=== PATIENT | female | born 1935 | race African-American/Black ===

== ENCOUNTER 2016-11-09 23:50 | Emergency (ER) | payer OTHER ==
[~2016-11-09] VITALS: Ht 157.5 cm; Wt 87.2 kg
[~2016-11-09 23:50] MED LIST: ACTOS15 MG PO; AMLODIPINE BESYL5 MG PO; FEOSOL325 MG PO; FLUCONAZOLE100 MG PO; FUROSEMIDE20 MG PO; FUROSEMIDE40 MG PO; GLIPIZIDE ER2.5 MG PO; GLUCOPHAGE500 MG; GLUCOPHAGE500 MG PO; GLUCOTROL XL5 MG PO; HYDROCHLOROTHIA25 MG PO; INDERIDE 40/1 TABLET PO; KLOR-CON 1010 ME1 PO; LASIX20 MG PO; LOSARTAN POTAS100 MG PO; LOSARTAN POTASS50 MG PO; Levaquin PO; Lopressor PO; METFORMIN HCL1000 M1; METFORMIN HCL1000 MG PO; MUCINEX600 MG PO; NORVASC10 MG PO; PERCOCET 5/31 TABLET PO; PREDNISONE10 MG PO; Protonix PO; Proventil,Ventolin H IH; SIMVASTATIN20 MG PO; SINEMET PO; TIMOLOL MAL; TRAMADOL HCL50 MG PO; UNABLEOBTAIN; ZITHROMAX Z-PA250 MG PO
[2016-11-10 00:35] LABS: HEMATOCRIT 30.4 % (36.0-46.0); MCH 28.7 PG (29.0-34.0); MCHC 32.9 G/DL (30.0-36.0); MCV 87.1 FL (83-99); MEAN PLAT.VOLUME 10.8 uM^3 (9.5-12.4); PLATELET COUNT 180 K/uL (156-360); RBC DIS.WIDTH-CV 15.4 % (11.8-14.6); RBC DIS.WIDTH-SD 48.1 % (39-53); RED BLOOD COUNT 3.49 M/uL (3.80-5.20); WHITE BLOOD COUNT 9.4 K/uL (4.1-10.2)
[2016-11-10 00:43] LABS: CHLORIDE 109 mEq/L (99-109); POTASSIUM 3.9 mEq/L (3.7-5.4); SODIUM 139 mEq/L (136-147)
[2016-11-10 00:45] LABS: GLUCOSE 125 mg/dL (70-99)
[2016-11-10 00:46] LABS: ANION GAP 10 MEQ/L (2-14)
[2016-11-10 00:49] LABS: GFR ESTIMATE (CALCULATED) 55 mL/min/; UREA NITROGEN (BUN) 26 mg/dL (9-23)
[2016-11-10] MEDS ORDERED: PERCOCET 5/31 TABLET PO (01:51)
[2016-11-10] MEDS ORDERED: PROVENTIL HFA6.7 GM IH (01:51)
[2016-11-10] MEDS ORDERED: ZOFRAN4 MG PO (01:51)
[2016-11-10 02:56] VITALS: BP 166/89
== END 2016-11-10 02:56 | disposition home or self-care (01) ==
LOC: EME 23:50
PROVIDERS: Emergency Medicine
DX: S22.41XA Multiple fractures of ribs, right side, initial encounter for closed fracture (principal); J90 Pleural effusion, not elsewhere classified; M85.80 Other specified disorders of bone density and structure, unspecified site; M51.36 Other intervertebral disc degeneration, lumbar region; G95.89 Other specified diseases of spinal cord; C41.4 Malignant neoplasm of pelvic bones, sacrum and coccyx; E11.9 Type 2 diabetes mellitus without complications; E78.5 Hyperlipidemia, unspecified; W01.0XXA Fall on same level from slipping, tripping and stumbling without subsequent striking against object, initial encounter; Y92.512 Supermarket, store or market as the place of occurrence of the external cause; Z79.4 Long term (current) use of insulin; Z79.899 Other long term (current) drug therapy
CPT/HCPCS: 72128; 72131; 74176; 80048; 85027; 99281; 99283

== ENCOUNTER 2017-11-09 18:13 | Emergency (ER) | payer OTHER ==
[~2017-11-09] VITALS: Ht 157.5 cm; Wt 78.2 kg
[~2017-11-09 18:13] MED LIST changes: +PROVENTIL HFA6.7 GM IH; +ZOFRAN4 MG PO
[2017-11-09 21:54] LABS: HEMATOCRIT 29.6 % (36.0-46.0); HEMOGLOBIN 9.5 G/DL (11.9-15.5); MCH 27.8 PG (29.0-34.0); MCHC 32.1 G/DL (30.0-36.0); MCV 86.5 FL (83-99); PLATELET COUNT 182 K/uL (156-360); RBC DIS.WIDTH-CV 16.4 % (11.8-14.6); RBC DIS.WIDTH-SD 51.8 % (39-53); RED BLOOD COUNT 3.42 M/uL (3.80-5.20); WHITE BLOOD COUNT 6.9 K/uL (4.1-10.2)
[2017-11-09] MEDS ORDERED: NORCO 5/3251 TABLET PO (21:55)
[2017-11-09] MEDS ORDERED: SILVADENE20 GM TP (21:55)
[2017-11-09 22:06] LABS: CHLORIDE 104 mEq/L (99-109); POTASSIUM 3.6 mEq/L (3.7-5.4); SODIUM 141 mEq/L (136-147)
[2017-11-09 22:07] LABS: GLUCOSE 75 mg/dL (70-99)
[2017-11-09 22:11] LABS: CREATININE 1.5 mg/dL (0.6-1.3); GFR ESTIMATE (CALCULATED) 43 mL/min/
[2017-11-09 22:12] LABS: UREA NITROGEN (BUN) 17 mg/dL (9-23)
[2017-11-09 22:27] VITALS: BP 144/52
== END 2017-11-09 22:28 | disposition home or self-care (01) ==
LOC: EME 18:13
PROVIDERS: Nurse Practitioner Family
DX: R60.0 Localized edema (principal); S91.001A Unspecified open wound, right ankle, initial encounter; I10 Essential (primary) hypertension; E78.5 Hyperlipidemia, unspecified; E11.9 Type 2 diabetes mellitus without complications; Z48.00 Encounter for change or removal of nonsurgical wound dressing; Z92.21 Personal history of antineoplastic chemotherapy; Z85.830 Personal history of malignant neoplasm of bone; Z85.79 Personal history of other malignant neoplasms of lymphoid, hematopoietic and related tissues
CPT/HCPCS: 80048; 85027

== ENCOUNTER 2017-12-09 17:53 | Emergency (ER) | payer OTHER ==
[~2017-12-09] VITALS: Ht 157.5 cm; Wt 61.8 kg
[~2017-12-09 17:53] MED LIST changes: +NORCO 5/3251 TABLET PO; +SILVADENE20 GM TP
[2017-12-09 20:07] LABS: BASOPHIL (%) 0.1 % (0-1); EOSINOPHIL (%) 0 % (0-5); HEMATOCRIT 29.2 % (36.0-46.0); IMMATURE GRANULOCYTE (%) 0.8 % (0.0-0.7); LYMPHOCYTE (%) 14.3 % (15-42); LYMPHOCYTE COUNT 1.1 K/uL (1.0-2.8); MCHC 30.8 G/DL (30.0-36.0); MCV 84.4 FL (83-99); MONOCYTE (%) 0.5 % (3-12); NEUTROPHIL (%) 84.3 % (45-76); NEUTROPHIL COUNT 6.2 K/uL (1.8-6.4); RBC DIS.WIDTH-CV 18.2 % (11.8-14.6); RBC DIS.WIDTH-SD 55.9 % (39-53); RED BLOOD COUNT 3.46 M/uL (3.80-5.20); WHITE BLOOD COUNT 7.4 K/uL (4.1-10.2)
[2017-12-09 20:10] LABS: PLATELET COUNT 295 K/uL (156-360)
[2017-12-09 20:20] LABS: CHLORIDE 103 mEq/L (99-109); SODIUM 141 mEq/L (136-147)
[2017-12-09 20:21] LABS: GLUCOSE 262 mg/dL (70-99)
[2017-12-09 20:25] LABS: CREATININE 1.4 mg/dL (0.6-1.3); GFR ESTIMATE (CALCULATED) 46 mL/min/
[2017-12-09 20:26] LABS: UREA NITROGEN (BUN) 23 mg/dL (9-23)
[2017-12-09] MEDS ORDERED: KEFLEX500 MG PO (22:12)
[2017-12-09 22:56] VITALS: BP 131/61
== END 2017-12-09 22:57 | disposition home or self-care (01) ==
LOC: EME 17:53
PROVIDERS: Emergency Medicine
DX: L03.115 Cellulitis of right lower limb (principal); I89.0 Lymphedema, not elsewhere classified; T36.96XA Underdosing of unspecified systemic antibiotic, initial encounter; Z91.138 Patient's unintentional underdosing of medication regimen for other reason; E11.9 Type 2 diabetes mellitus without complications; E78.5 Hyperlipidemia, unspecified; I10 Essential (primary) hypertension
CPT/HCPCS: 73590; 80048; 83605; 85025; 99281; 99284

== ENCOUNTER 2018-04-11 15:20 | Emergency (ER) | payer OTHER ==
[~2018-04-11] VITALS: Ht 157.5 cm; Wt 70.8 kg
[~2018-04-11 15:20] MED LIST changes: +KEFLEX500 MG PO
[2018-04-11] MEDS ORDERED: MOBIC7.5 MG PO (18:04)
[2018-04-11 18:28] VITALS: BP 148/84
== END 2018-04-11 18:30 | disposition home or self-care (01) ==
LOC: EME 15:20
DX: S43.401A Unspecified sprain of right shoulder joint, initial encounter (principal); W10.9XXA Fall (on) (from) unspecified stairs and steps, initial encounter; M19.011 Primary osteoarthritis, right shoulder; I10 Essential (primary) hypertension; E11.9 Type 2 diabetes mellitus without complications; E78.5 Hyperlipidemia, unspecified; C41.4 Malignant neoplasm of pelvic bones, sacrum and coccyx; Z92.21 Personal history of antineoplastic chemotherapy
CPT/HCPCS: 73030; 99281; 99283